=== PATIENT | male | born 1985 | race Caucasian/White ===

== ENCOUNTER 2021-04-11 12:06 | Emergency (ER) | payer SELFPAY ==
--- NOTE | 2021-04-11 12:22 | EDM.PDOC ---
ED HPI GENERAL MEDICAL PROBLEM - General Chief Complaint: General Stated Complaint: possible carbon monoxide Time Seen by Provider: 04/11/21 12:10 Source of Information: Reports: Patient History Limitations: Reports: No Limitations - History of Present Illness INITIAL COMMENTS - FREE TEXT/NARRATIVE: 36-year-old male presents the ED complaining of generalized body aches, headach e, fatigue, general malaise. Patient has had a headache for approximately 1 week. All the other symptoms started approximately 24 hours ago acutely. Nothing seems to make the symptoms better or worse. Patient describes feeling ill. Positive for: Headache, stiffness, body aches, fatigue, decreased appetite, "feel like I have the flu", nausea, smoker. Negative for: Chest pain, shortness of breath, syncope/near syncope, vomiting, blurred vision, trauma, blood on the stool, black tarry stool, changes to urinary color smell frequency, red swollen painful joints, rash, fever - Related Data Allergies Allergy/AdvReac Type Severity Reaction Status Date / Time No Known Allergies Allergy Verified 04/11/21 13:32 Home Meds: Home Meds NK [No Known Home Meds] 04/11/21 [History] ED ROS GENERAL - Review of Systems Review Of Systems: Comprehensive ROS is negative, except as noted in HPI. ED EXAM, GENERAL - Physical Exam Exam: See Below Free Text/Narrative:: ABC intact. No apparent distress. No obvious trauma. Speaking in full sentences. Alert and oriented x3, GCS 456. Exam Limited By: No Limitations General Appearance: Alert, WD/WN, No Apparent Distress Eye Exam: Bilateral Eye: EOMI, PERRL Ears: Normal External Exam, Normal Canal, Hearing Grossly Normal, Normal TMs Ear Exam: Bilateral Ear: Auricle Normal, Canal Normal, TM normal Nose: Normal Inspection, Normal Mucosa, No Blood, Clear Rhinorrhea Throat/Mouth: Normal Inspection, Normal Lips, Normal Teeth, Normal Gums, Normal Oropharynx, Normal Voice, No Airway Compromise Head: Atraumatic, Normocephalic Neck: Normal Inspection, Supple, Non-Tender, Full Range of Motion. No: Lymphadenopathy (R), Lymphadenopathy (L) Respiratory/Chest: No Respiratory Distress, Normal Breath Sounds, No Accessory Muscle Use, Chest Non-Tender, Rhonchi (Mild rhonchi upper left lobe) Cardiovascular: Normal Peripheral Pulses, Regular Rate, Rhythm, No Edema, No Gallop, No JVD, No Murmur, No Rub GI/Abdominal: Normal Bowel Sounds, Soft, Non-Tender, No Organomegaly, No Distention, No Mass Back Exam: Normal Inspection. No: CVA Tenderness (R), CVA Tenderness (L) Neurological: Alert, Oriented, Normal Cognition Psychiatric: Normal Affect, Normal Mood Skin Exam: Warm, Dry, Intact, Normal Color, No Rash Lymphatic: No Adenopathy Course - Orders/Labs/Meds Orders: Active Orders 24 hr Category Date Time Status BASIC METABOLIC PANEL,BMP [CHEM] Stat Lab 04/11/21 12:10 Ordered CBC WITH AUTO DIFF [HEME] Stat Lab 04/11/21 12:10 Ordered CORONAVIRUS COVID-19 RAPID [MOLEC] Stat Lab 04/11/21 12:12 Ordered INFLUENZA A+B AG SCREEN [RM] Stat Lab 04/11/21 12:12 Ordered TROPONIN I [CHEM] Stat Lab 04/11/21 12:10 Ordered Isolation [COMM] Routine Oth 04/11/21 12:13 Ordered Departure - Departure Time of Disposition: 14:00 Disposition: Home, Self-Care 01 Condition: Good Clinical Impression: COVID-19 - Discharge Information *PRESCRIPTION DRUG MONITORING PROGRAM REVIEWED*: No *COPY OF PRESCRIPTION DRUG MONITORING REPORT IN PATIENT DANILO: No - My Orders Last 24 Hours: My Active Orders 04/11/21 12:10 BASIC METABOLIC PANEL,BMP [CHEM] Stat CBC WITH AUTO DIFF [HEME] Stat TROPONIN I [CHEM] Stat 04/11/21 12:12 CORONAVIRUS COVID-19 RAPID [MOLEC] Stat INFLUENZA A+B AG SCREEN [RM] Stat 04/11/21 12:13 Isolation [COMM] Routine - Assessment/Plan Last 24 Hours: My Active Orders 04/11/21 12:10 BASIC METABOLIC PANEL,BMP [CHEM] Stat CBC WITH AUTO DIFF [HEME] Stat TROPONIN I [CHEM] Stat 04/11/21 12:12 CORONAVIRUS COVID-19 RAPID [MOLEC] Stat INFLUENZA A+B AG SCREEN [RM] Stat 04/11/21 12:13 Isolation [COMM] Routine Assessment:: 1. COVID-19 2. Nausea 3. Fever Plan: ABC, history, exam, labs, x-ray, patient education/shared decision-making, supportive/symptomatic care, reasons to return to the ED. This patient presents for evaluation of generalized illness including cough. Patient has had no known Covid exposure and his rapid test was positive. There are no signs at this point of other serious bacterial infection such as otitis media, retropharyngeal abscess, epiglottitis, peritonsillar abscess, strep pharyngitis, pneumonia, sinusitis, meningitis, bacteremia. Given clear lungs, no fever, no hypoxia and a negative chest x-ray associated with no concerning gastrointestinal symptoms or dehydration at this point outpatient isolation is warranted. Close follow-up with primary care physician is indicated. Return to the ED if with a fever greater than 103. Protracted vomiting, increased shortness of breath, anorexia or confusion. 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
[2021-04-11] MEDS: Sodium Chloride 0.9% 1,000 ML IV SCH (12:48)
--- NOTE | 2021-04-11 20:23 | CR ---
CLINICAL DATA: Wheezing. AP CHEST, 11 APRIL 2021: The heart size is normal. The lungs are clear. No pneumothorax. No pleural effusions. No evidence of acute intrathoracic disease. Job: [id number] MTDD
== END 2021-04-11 13:45 | disposition home or self-care (01) ==
LOC: LB.ED 12:06
DX: U07.1 COVID-19 (principal)
CPT/HCPCS: 36415; 71045; 80048; 84484; 85025; 87635; 87804; 99284; J7030; U0002

== ENCOUNTER 2021-04-20 13:40 | Emergency (ER) | payer MEDICAID ==
[2021-04-20] MEDS ORDERED: Ondansetron 4 MG/2 ML SDV IVPUSH ONE (15:15)
[2021-04-20] MEDS ORDERED: Sodium Chloride 0.9% 1,000 ML IV ONE (15:15)
[2021-04-20] MEDS ORDERED: Ketorolac 30 MG/ML SDV IVPUSH ONE (15:16)
[2021-04-20] MEDS ORDERED: Ondansetron 4 MG/2 ML SDV ONE (15:46)
[2021-04-20] MEDS ORDERED: Ketorolac 30 MG/ML SDV ONE (15:46)
== END 2021-04-20 17:34 | disposition home or self-care (01) ==
LOC: LB.ED 13:40
DX: E86.0 Dehydration (principal); R10.32 Left lower quadrant pain; Z86.16 Personal history of COVID-19
CPT/HCPCS: 36415; 74176; 80053; 81001; 83690; 85025; 96374; 96375; 99284-25; J1885; J2405; J7030